=== PATIENT | male | born 1970 | race Caucasian/White ===

== ENCOUNTER 2019-07-07 07:33 | Outpatient (RCR) | payer BC ==
[~2019-07-07] VITALS: Ht 165 cm; Wt 109.0 kg
[~2019-07-07 07:33] MED LIST: ALPR0.5T PO; ATOR20TA49 PO; CITA40TA19 PO; ENAL10TA PO; HYDR50TA3 PO; LEVO100T PO
== END 2019-07-07 14:52 | disposition home or self-care (01) ==
LOC: EDSEX 07:33 → PREOP 07:33
PROVIDERS: ATTEND Podiatrist Foot & Ankle Surgery
DX: Z01.812 Encounter for preprocedural laboratory examination (principal); Z11.59 Encounter for screening for other viral diseases; M72.2 Plantar fascial fibromatosis
CPT/HCPCS: 87635

== ENCOUNTER 2019-07-11 11:50 | Day surgery (SDC) | payer BC ==
[~2019-07-11] VITALS: Ht 165 cm; Wt 109.0 kg
[2019-07-11] VITALS (9 sets, daily range): BP systolic 139–165; BP diastolic 80–100
[2019-07-11] MEDS ORDERED: BUPIVACAINE 0.5% 30 ML (SENSORCAINE) VIAL ONE (11:56)
[2019-07-11] MEDS ORDERED: LIDOCAINE 1% INJ 20 ML 20 ML VIAL ONE (11:57)
[2019-07-11] MEDS ORDERED: DEXAMETHASONE 10 MG/ML (DECADRON) 1 ML VIAL ONE (12:01)
[2019-07-11] MEDS ORDERED: LACTATED RINGERS 1,000 ML IV PRN (12:04)
[2019-07-11] MEDS ORDERED: proPOfol 200 MG/20 ML (DIPRIVAN) VIAL IV ONE (12:10)
[2019-07-11] MEDS ORDERED: fentaNYL INJECTION 100 MCG/2 ML AMP ONE (12:10)
[2019-07-11] MEDS ORDERED: ONDANSETRON 4 MG/2 ML (SDV) Z0FRAN ONE (12:10)
[2019-07-11] MEDS ORDERED: LIDOCAINE PF 2% 5 ML (XYLOCAINE) VIAL ONE (12:10)
[2019-07-11] MEDS ORDERED: MIDAZOLAM 2 MG/2 ML (VERSED) VIAL ONE (12:10)
[2019-07-11] MEDS ORDERED: ceFAZolin INJECTION 1,000 MG ONE (12:11)
[2019-07-11] MEDS ORDERED: WATER (STERILE) FOR INJECTION 10 ML ONE (12:11)
[2019-07-11] MEDS ORDERED: CATHETER FLUSH 10 ML SYR IV PRN (12:15)
[2019-07-11] MEDS ORDERED: ceFAZolin INJECTION 1,000 MG in WATER (STERILE) FOR INJECTION 10 ML IV ONE (12:15)
[2019-07-11] MEDS ORDERED: SEVOFLURANE (ULTANE) 15 ML INHAL SOLN ONE (12:58)
--- NOTE | 2019-07-11 13:16 | Progress Note-Pre Operative ---
Pre-Operative Progress Note H&P Reviewed The H&P was reviewed, patient examined and no changes noted. Date Seen by Provider: Jul 11, 2019 Time Seen by Provider: 12:20 Date H&P Reviewed: Jul 11, 2019 Time H&P Reviewed: 12:20 Pre-Operative Diagnosis: Plantar fasciitis, left ANABELLA KIRBY DPElyssa Jul 11, 2019 13:16
--- NOTE | 2019-07-11 13:17 | Progress Note-Post Operative ---
Post-Operative Progess Note Surgeon (s)/Clerk Secretary (s) Surgeon ANABELLA KIRBY DPM Clerk Secretary: none Pre-Operative Diagnosis Plantar fasciitis, left Post-Operative Diagnosis same Procedure & Operative Findings Date of Procedure 07/11/19 Procedure Performed/Findings Endoscopic Plantar Fascial release, left foot Anesthesia Type General Estimated Blood Loss Estimated blood loss (mL): Minimal Specimens/Packing Specimens Removed None ANABELLA KIRBY DPM Jul 11, 2019 13:17
[2019-07-11] MEDS ORDERED: HYDR-83 PO (13:21)
[2019-07-11] MEDS ORDERED: ONDANSETRON 4 MG/2 ML (SDV) Z0FRAN IVP PRN (13:30)
[2019-07-11] MEDS ORDERED: HYDROmorphone 2 MG/ML VIAL (DILAUDID) IV ONE (13:30)
[2019-07-11] MEDS ORDERED: PROMETHAZINE INJ 25 MG/ML (PHENERGAN) AMP IVP ONE (13:30)
[2019-07-11] MEDS ORDERED: morphine INJ 10 MG/ML 1ML (SYR OR VIAL) IVP ONE (13:30)
--- NOTE | 2019-07-11 14:45 | Anesthesia-General Post-Op ---
General Patient Condition Mental Status/LOC: Same as Preop Cardiovascular: Satisfactory Nausea/Vomiting: Absent Respiratory: Satisfactory Pain: Controlled Complications: Absent Post Op Complications Complications None Follow Up Care/Instructions Patient Instructions None needed. Anesthesia/Patient Condition Patient Condition Patient is doing well, no complaints, stable vital signs, no apparent adverse anesthesia problems. No complications reported per nursing. ASHLEIGH OLEARY CRNA Jul 11, 2019 14:45
--- OUTSIDE RECORDS SUMMARY | 2019-07-11 15:15 | XMS REPORT ---
Author Author [facility] Medic al Staff, JOSEPHINE Organization [facility] Address [address], [place] [address] Phone [phone] Care Team Providers Care Catering Sous Chef Name Role Phone MARY SOUZA PP [phone] Summary purpose TRANSITION OF CARE AUTO GENERATION Chief Complaint and Reason for Visit No authorized Reason for Visit (Admitting Diagnosis) is available for this visit . Problem list No authorized problems tracked for continuity of care are available for this vis it. Encounters No authorized problems tracked for encounter diagnoses are available for this vi sit. Medications No medications recorded for this patient visit Allergies, adverse reactions, alerts Allergen Category Ingredient Status Reaction Severity Onset No known drug allergies No known drug allergies No known drug al lergies Confirmed or Verified Immunizations No immunizations recorded for this patient visit Relevant diagnostic tests and/or laboratory data No authorized results are available for this patient visit History of procedures No procedures recorded for this patient visit. Functional status Functional Status Finding Observation Time Diet regular :55 Abdomen Appearance obese :55 Abdomen soft :55 Bowel Sounds present :55 Antonio no :55 Urination normal :55 Quality sym/unlabored :55 Cough absent :55 Secretions no :55 Breath Sounds RUL clear :55 Breath Sounds RML clear :55 Breath Sounds RLL clear :55 Breath Sounds MARTÍN clear :55 Breath Sounds LLL clear :55 Airway natural :55 Chest Tube no :55 Oxygen no 67-70-880618:42 Nursing Note Ankle brace/ splint placed o n right ankle. B. Kimberly in to show xrays to patient and her . :35 Vital signs Type Value Date Respiration Rate 18breaths per minute : 42 Pulse 70beats per minute :42 Oxygen Saturation 99% :42 BP Systolic 123mmHg :42 BP Diastolic 70mmHg :42 Temperature 98.4F :42 Social history No Social History or smoking status observations were recorded for this visit. ( Unknown if ever smoked.) Treatment Plan No treatment plan text is available for this visit. Hospital discharge instructions Dismissal Condition fair Disposition on DC home DC Inst/Educ Give yes Med/Side Effects Rev yes
--- OUTSIDE RECORDS SUMMARY | 2019-07-11 15:15 | XMS REPORT ---
Author Author [facility] Medic al Staff, JOSEPHINE Organization [facility] Address [address], [place] [address] Phone [phone] Care Team Providers Care Momd Teacher Name Role Phone MARY SOUZA PP [phone] Summary purpose TRANSITION OF CARE AUTO GENERATION [...] recorded for this patient visit. Functional status No functional or cognitive status observations are available for this visit. Vital signs No authorized vital signs are available for this visit. Social history No Social History or smoking status observations were recorded for this visit. ( Unknown if ever smoked.) Treatment Plan No treatment plan text is available for this visit. Hospital discharge instructions No discharge instruction text is available for this visit.
--- OUTSIDE RECORDS SUMMARY | 2019-07-11 15:15 | XMS REPORT ---
Author Author [facility] Medic al StaffJOSEPHINE Organization [facility] Address [address], [place] [address] Phone [phone] Care Team Providers Care Bow Maker Machine Tender Name Role Phone MARY SOUZA PP [phone] Summary purpose TRANSITION OF CARE AUTO GENERATION [...] visit Relevant diagnostic tests and/or laboratory data RESULTS Radiology Results 31-50-073545:23:00 Pelvic Sono Complete PACs Image DATE OF EXAM: Jul 17 2014 [id number] SONO COMPL ETE : RADIOLOGY REPORT DATE OF SERVICE: 07/17/14 HISTORY: Patient has pelvic pain, histor y of ovarian cysts. PELVIC [id number] HOURS The uterus has been removed. The right o vary shows cyst measuring 2.2 x 2.1 x 2.3 cm. The left ovary is normal. IMPRESSION: Cyst in the right ovary. The size is similar to a study 07/26/2009, although cyst is slightly sma ller. No free fluid is seen. Uterus has been removed. DO HONG Murray/raquel 07/17/2014 09:41:00 07/06 09:59:17 cc:Elan Campos This document has been electronically Signed by: On: DATE OF EXAM: Jul 17 2014 [id number] SONO COMPL ETE : RADIOLOGY REPORT DATE OF SERVICE: 07/17/14 HISTORY: Patient has pelvic pain, histor y of ovarian cysts. PELVIC [id number] HOURS The uterus has been removed. The right o vary shows cyst measuring 2.2 x 2.1 x 2.3 cm. The left ovary is normal. IMPRESSION: Cyst in the right ovary. The size is similar to a study 07/26/2009, although cyst is slightly sma ller. No free fluid is seen. Uterus has been removed. All Rodriguez DO MW/nh 07/17/2014 09:41:00 / 07/06 09:59:17 cc:Elan Campos This document has been electronically Signed by: ALL RODRIGUEZ DO On: Jul 17 2014 10:23A Result Amended on 2014-07-17 at 10:23:42 . Previous status was [place]. History of procedures No procedures recorded for [...]
--- OUTSIDE RECORDS SUMMARY | 2019-07-11 15:16 | XMS REPORT ---
Author Author [facility] Medic al Staff, JOSEPHINE Organization [email or web address] Address [address], [place] [address] Phone [phone] Care Team Providers Care Food Stylist Name Role Phone MARY SOUZA PP [phone] Summary purpose TRANSITION OF CARE AUTO GENERATION [...]
--- OUTSIDE RECORDS SUMMARY | 2019-07-11 15:16 | XMS REPORT ---
Author Author [facility] Medic al Staff, JOSEPHINE Organization [facility] Address [address], [place] [address] Phone [phone] Care Team Providers Care Reefer Engineer Name Role Phone MARY SOUZA PP [phone] Summary purpose TRANSITION OF CARE AUTO GENERATION Chief Complaint and Reason for Visit Admit Diagnosis 1 PHYSICAL THERAPY NEC Problem list No authorized problems tracked for [...]
--- OUTSIDE RECORDS SUMMARY | 2019-07-11 15:16 | XMS REPORT ---
Author Author [facility] Medic al Staff, JOSEPHINE Organization [facility] Address [address], [place] [address] Phone [phone] Summary purpose TRANSITION OF CARE AUTO GENERATION [...] Relevant diagnostic tests and/or laboratory data RESULTS Chemistry [id number]:44:00 Result Normal Range Units Sodium 139 134-145 mEq/l Potassium 4.6 3.5-5.1 mEq/l Chloride 103 98-107 mEq/l CO2 H 29.6 22-28 mEq/l Glucose H 117 70-105 mg/dl BUN 13 7-18 mg/dl Creatinine 0.66 0.6-1.0 mg/dl Triglycerides 159 35-160 mg/dl Cholesterol 187 120-200 mg/dl HDL Cholesterol 39 39-96 mg/d l VLDL Cholesterol 32 5-40 mg/ dl LDL Cholesterol H 109 30-100 mg/d l Calcium 8.7 8.4-10.2 mg/dl TP - Total Protein 6.7 6.0-8.3 g /dl Albumin L 3.4 3.5-5 g/dl Bilirubin - Total 0.3 0.1-1.0 mg /dl AST 24 10-42 IU/L ALT 36 12-65 IU/L ALP H 82 25-72 IU/L Osmolality L 278.7 280-300 mOsm/L Albumin/Globulin Ratio 1.0 0-8 Anion GAP L 6.4 8-16 BUN/Creatinine Ratio 19.7 10-20 Estimated GFR 98 >= 60 mL/min /1.7 Hematology :44:00 Result Normal Range Units WBC 6.5 4.8-10.8 103/uL RBC 4.2 4.2-5.4 106/uL HGB L 11.4 12.0-16.0 g/dl HCT L 34.5 36.9-47.0 % MCV 81.4 81-99 FL MCH L 26.9 27-31 pg MCHC 33.0 33-37 g/dl RDW 14.0 11.5-15.5 % PLT 258 130-400 103/uL MPV H 10.7 7.3-10.4 FL Neutro % 61.9 40-70 % Lymph % 28.9 20-40 % [place] % 6.2 0-10.0 % Eos % 2.2 0-7.0 % Baso % 0.6 0-2 % Neutro # 4.0 1.5-7.5 103/uL Lymph # 1.9 0.9-4.0 103/uL [place] # 0.4 0-0.8 103/uL Eos # 0.1 0-0.6 103/uL Baso # 0.0 0-0.1 103/uL Thyroid Testing :44:00 Result Normal Range Units TSH 2.63 0.36-3.74 uIU/mL Free T4 0.79 0.78-1.34 ng/dl Radiology Results :44:00 Result Normal Range Units MPV H 10.7 7.3-10.4 FL History of procedures No procedures recorded for [...]
--- OUTSIDE RECORDS SUMMARY | 2019-07-11 15:16 | XMS REPORT ---
Author Author [facility] Medic al Staff, JOSEPHINE Organization [facility] Address [address] [place], [place] [address] Phone [phone] Care Team Providers Care Review Assistant Name Role Phone MARY SOUZA PP [phone] Summary purpose TRANSITION OF CARE AUTO GENERATION [...] Relevant diagnostic tests and/or laboratory data RESULTS Routine Cultures [id number]:14:00 Urine Culture Plate Date and Time 07/09/2014 12:15 SourceURINE CULTURE REPORT >100,000 colonies/ml Mixed juanpablo Culture Pending Release Date/Time: 0 07/10/2014 08:20 CULTURE REPORT >100,000 colonies/ml Mixed vaginal and stool juanpablo. Release Date/Time: 0 07/11/2014 08:01 History of procedures No procedures recorded for [...]
--- OUTSIDE RECORDS SUMMARY | 2019-07-11 15:16 | XMS REPORT ---
Author Author [facility] Medic al Staff, JOSEPHINE Organization [facility] Address [address], [place] [address] Phone [phone] Summary purpose TRANSITION OF CARE AUTO GENERATION Chief Complaint and Reason for Visit Admit Diagnosis 1 OT SCREEN MAMMOGRAM Problem list No authorized problems tracked for [...] tests and/or laboratory data RESULTS Radiology Results [id number]:47:00 Bilateral Screen Digital Mammo PACs Image DATE OF EXAM: Sep 23 2014 [facility] 0845-BILAT SCREEN DIG MA MMO : RADIOLOGY REPORT DATE OF SERVICE: 09/23/14 HISTORY: Screening for possible malignan t neoplasm BILATERAL SCREENING DIGITAL MAMMOGRAPHY WITH iCAD SecondLook 7.2-H+ 1410 HOURS There is heterogeneously dense breasts. No mass, grouped calculi or architectural distortion are seen. IMPRESSION: Negative BI-RADS I study unc hanged from 09/26/2013. All Rodriguez DO /raquel 09/23/2014 14:48:00 / 09/05 14:54:01 cc:Dr. Srini Campos This document has been electronically Signed by: On: DATE OF EXAM: Sep 23 2014 [facility] 0845-BILAT SCREEN DIG MA MMO : RADIOLOGY REPORT DATE OF SERVICE: 09/23/14 HISTORY: Screening for possible malignan t neoplasm BILATERAL SCREENING DIGITAL MAMMOGRAPHY WITH iCAD SecondLook 7.2-H+ 1410 HOURS There is heterogeneously dense breasts. No mass, grouped calculi or architectural distortion are seen. IMPRESSION: Negative BI-RADS I study unc hanged from 09/26/2013. All Rodriguez DO MW/nh 09/23/2014 14:48:00 / 09/05 14:54:01 cc:Dr. Srini Campos This document has been electronically Signed by: ALL RODRGIUEZ DO On: Sep 23 20145:47P Result Amended on 2014-09-23 at 17:47:17 . Previous status was [place]. History of procedures Procedure Code Code Type Description Date Performed Performing Physician 13796 CPT-4 MAMMOGRAM, SCREENING 09-23-2014 SRINI BURNHAM 92514 CPT-4 COMP SCREEN MAMMOGRAM ADD-ON 09-23-2014 SRINI BURNHAM Functional status No functional or cognitive status [...]
--- OUTSIDE RECORDS SUMMARY | 2019-07-11 15:16 | XMS REPORT ---
Author Author [facility] Medic al Staff, JOSEPHINE Organization [facility] Address [address], [place] [address] Phone [phone] Care Team Providers Care Stonecutter Apprentice Hand Name Role Phone MARY SOUZA PP [phone] Summary purpose TRANSITION OF CARE AUTO GENERATION [...] tests and/or laboratory data RESULTS Radiology Results [id number]:05:00 MRI LOW EXT JT W/O CON PACs Image DATE OF EXAM: 2014 MRI 0093-MRI LOWER EXT JOINT W/O CONTRAST- RIGHT: RADIOLOGY REPORT DATE OF SERVICE:08/06/2014 HISTORY:Right ankle pain, swelling, popping and catching, injury on 05/12/2014. MRI OF THE RIGHT ANKLE 0910 HOURS Imaging of the ankle was performed in th e sagittal, coronal, and axial planes. No contrast was administered. There is mild thickening and increased s ignal in the distal 3 cm of the Achilles tendon and minimal edema in the adjacent posterior calcaneus at the Achilles tendon insertion. The plant ar aponeurosis is normal. The peroneal tendons, medial tendons and anterior tendons are normal. The talar dome is smooth. There is no evan int effusion or definite loose body. The deltoid and talofibular ligame nts are normal. There is a small septated ganglion cyst posteriorly at th e ankle measuring 11 x 15 mm. The talocalcaneal joint is normal. No de finite tarsal coalition is visualized. There is mild edema in the s oft tissues of the distal leg and lateral ankle. IMPRESSION: 1. Small ganglion cyst posteriorly at th e tibiotalar joint. 2. Probable mild chronic Achilles tendinosis. 3. No other significant ligamentous or t endon abnormality about the ankle. 4. Nonspecific subcutaneous edema. MD BASSAM Woody/cecile08/06/2014 11:48:03/2014 12:46:26 cc:Abraham Velazquez This document has been electronically Signed by: On: DATE OF EXAM: 2014 MRI 0093-MRI LOWER EXT JOINT W/O CONTRAST- RIGHT: RADIOLOGY REPORT DATE OF SERVICE:08/06/2014 HISTORY:Right ankle pain, swelling, popping and catching, injury on 05/12/2014. MRI OF THE RIGHT ANKLE 0910 HOURS Imaging of the ankle was performed in th e sagittal, coronal, and axial planes. No contrast was administered. There is mild thickening and increased s ignal in the distal 3 cm of the Achilles tendon and minimal edema in the adjacent posterior calcaneus at the Achilles tendon insertion. The plant ar aponeurosis is normal. The peroneal tendons, medial tendons and anterior tendons are normal. The talar dome is smooth. There is no evan int effusion or definite loose body. The deltoid and talofibular ligame nts are normal. There is a small septated ganglion cyst posteriorly at th e ankle measuring 11 x 15 mm. The talocalcaneal joint is normal. No de finite tarsal coalition is visualized. There is mild edema in the s oft tissues of the distal leg and lateral ankle. IMPRESSION: 1. Small ganglion cyst posteriorly at th e tibiotalar joint. 2. Probable mild chronic Achilles tendinosis. 3. No other significant ligamentous or t endon abnormality about the ankle. 4. Nonspecific subcutaneous edema. MD BASSAM Woody/cecile08/06/2014 11:48:03/2014 12:46:26 cc:Abraham Velazquez This document has been electronically Signed by: MARY LARA On: :05P Result Amended on 2014-08-06 at 14:05:27 . Previous status was [place]. History of procedures No procedures recorded for [...]
--- OUTSIDE RECORDS SUMMARY | 2019-07-11 15:16 | XMS REPORT ---
Author Author [facility] Medic al StaffJOSEPHINE Organization [facility] Address [address], [place] [address] Phone [phone] Care Team Providers Care Farmworker Livestock Name Role Phone MARY SOUZA PP [phone] Summary purpose TRANSITION OF CARE AUTO GENERATION [...] tests and/or laboratory data RESULTS Radiology Results [id number]:23:00 Pelvic Sono Complete PACs Image DATE OF EXAM: Jul 17 2014 [id number] SONO COMPL ETE : RADIOLOGY REPORT DATE OF SERVICE: 07/17/14 HISTORY: Patient has pelvic pain, histor y of ovarian cysts. PELVIC [id number] HOURS The uterus has been removed. The [...] On: DATE OF EXAM: Jul 17 2014 [id number] SONO COMPL ETE : RADIOLOGY REPORT DATE OF SERVICE: 07/17/14 HISTORY: Patient has pelvic pain, histor y of ovarian cysts. PELVIC [id number] HOURS The uterus has been removed. The [...] 2014-07-17 at 10:23:42 . Previous status was [place]. History of procedures No procedures recorded for [...]
--- OUTSIDE RECORDS SUMMARY | 2019-07-11 15:16 | XMS REPORT ---
Author Author [employer] [facility] Medic al Staff, JOSEPHINE Organization [facility] Address [address] [place], [place] [address] Phone [phone] Care Team Providers Care Automotive Refinisher Name Role Phone GABRIEL SOUZA PP [phone] Summary purpose TRANSITION OF CARE AUTO GENERATION Chief Complaint and Reason for Visit Admit Diagnosis 1 PAIN IN LIMB Problem list No authorized problems tracked for [...] tests and/or laboratory data RESULTS Radiology Results [id number]:02:00 FOOT XRAY - 3 VIEW PACs Image DATE OF EXAM: Jun 28 2014 RAD 0649-FOOT XRAY-3 VIEW - RIGHT: RADIOLOGY REPORT DATE OF SERVICE: 06/28/2014 HISTORY: The patient has right foot pain with no known injury. RIGHT FOOT, 3 VIEWS 1631 HOURS There is ossification and attachment of Achilles tendon to the calcaneus.This is degenerative.R emaining bony structures and joints are intact and normal. IMPRESSION: Ossification and attachment of Achilles tendon to calcaneus. Otherwise, negative study. All Rodriguez DO MW/cc 06/29/2014 16:15:00 / 0506/2014 19:18:59 cc:Gabriel Barry PA-C This document has been electronically Signed by: On: DATE OF EXAM: Jun 28 2014 RAD 0649-FOOT XRAY-3 VIEW - RIGHT: RADIOLOGY REPORT DATE OF SERVICE: 06/28/2014 HISTORY: The patient has right foot pain with no known injury. RIGHT FOOT, 3 VIEWS 1631 HOURS There is ossification and attachment of Achilles tendon to the calcaneus.This is degenerative.R emaining bony structures and joints are intact and normal. IMPRESSION: Ossification and attachment of Achilles tendon to calcaneus. Otherwise, negative study. All Rodriguez DO MW/cc 06/29/2014 16:15:00 / 06/06 19:18:59 cc:Gabriel Barry PA-C This document has been electronically Signed by: ALL RODRIGUEZ DO On: Jun 30 2014 12:02P Result Amended on 2014-06-30 at 12:02:26 . Previous status was [place]. History of procedures Procedure Code Code Type Description Date Performed Performing Physician 27622 CPT-4 X-RAY EXAM OF FOOT 06-28-2014 EDUARDOLORENA HARRIS L1902 CPT-4 AFO ANKLE GAUNTLET 06-28-2014 EDUARDOLORENA HARRIS 43837 CPT-4 EMERGENCY DEPT VISIT 06-28-2014 JAIRONHOLLI KRISHNAMURTHY PHUONG 33502 CPT-4 EMERGENCY DEPT VISIT 06-28-2014 JAIRONHOLLI HARRIS Functional status Functional Status Finding Observation Time Diet regular 60-77-485813:55 Abdomen Appearance obese 88-53-777040:55 Abdomen soft 30-10-863240:55 Bowel Sounds present 72-40-187083:55 Antonio no 00-68-645652:55 Urination normal 17-69-875112:55 Quality sym/unlabored 72-08-920749:55 Cough absent 73-85-859143:55 Secretions no 73-91-958039:55 Breath Sounds RUL clear 48-25-634076:55 Breath Sounds RML clear 78-08-379623:55 Breath Sounds RLL clear 35-66-594067:55 Breath Sounds MARTÍN clear 90-95-622208:55 Breath Sounds LLL clear 96-75-689527:55 Airway natural 78-63-618466:55 Chest Tube no 38-74-808199:55 Oxygen no 11-50-234300:42 Nursing Note Ankle brace/ splint placed o n right ankle. Srini Harris in to show xrays to patient and her . :35 Vital signs Type Value Date Respiration Rate 18breaths per minute : 42 Pulse 70beats per minute :42 Oxygen Saturation 99% 14-76-876990:42 BP Systolic 123mmHg 62-76-168163:42 BP Diastolic 70mmHg 78-04-068578:42 Temperature 98.4F 85-60-272125:42 Social history No Social History or smoking status observations were recorded for this visit. ( Unknown if ever smoked.) Treatment Plan No treatment plan text is available for this visit. Hospital discharge instructions Dismissal Condition fair Disposition on DC home DC Inst/Educ Give yes Med/Side Effects Rev yes
--- OUTSIDE RECORDS SUMMARY | 2019-07-11 15:16 | XMS REPORT ---
Author Author [facility] Medic al Staff, JOSEPHINE Organization [facility] Address [address] [place], [place] [address] Phone [phone] Care Team Providers Care Elevator Installer Apprentice Name Role Phone MARY SOUZA PP [phone] Summary purpose TRANSITION OF CARE AUTO GENERATION [...] for this patient visit History of procedures Procedure Code Code Type Description Date Performed Performing Physician 27490 CPT-4 PT EVALUATION 07-23-2014 NAVID BOWENS 41409 CPT-4 ELECTRIC CURRENT THERAPY 07-23-2014 Theresa BOWENS 51145 CPT-4 ELECTRIC CURRENT THERAPY 07-27-2014 B DERRICK BOWENS 21523 CPT-4 ELECTRIC CURRENT THERAPY 07-30-2014 Theresa BOWENS Functional status No functional or cognitive status [...]
--- OUTSIDE RECORDS SUMMARY | 2019-07-11 15:16 | XMS REPORT ---
Author Author [email or web address] Medic al Staff, JOSEPHINE Organization [facility] Address [address] [place], [place] [address] Phone [phone] Summary purpose TRANSITION OF CARE AUTO GENERATION [...] tests and/or laboratory data RESULTS Radiology Results 93-70-705527:47:00 Bilateral Screen Digital Mammo PACs Image DATE OF EXAM: Sep 23 2014 [facility] 0845-BILAT SCREEN DIG MA MMO : RADIOLOGY REPORT DATE OF SERVICE: 09/23/14 HISTORY: Screening for possible malignan t neoplasm BILATERAL SCREENING DIGITAL MAMMOGRAPHY WITH iCAD SecondLook 7.2-H+ 1410 HOURS There is heterogeneously dense breasts. No mass, grouped calculi or architectural distortion are seen. IMPRESSION: Negative BI-RADS I study unc hanged from 09/26/2013. DO HONG Murray/raquel 09/23/2014 14:48:00 / 09/05 14:54:01 cc:Dr. Ayla Campos This document has been electronically Signed by: On: DATE OF EXAM: Sep 23 2014 [facility] 0845-BILAT SCREEN DIG MA MMO : RADIOLOGY REPORT DATE OF SERVICE: 09/23/14 HISTORY: Screening for possible malignan t neoplasm BILATERAL SCREENING DIGITAL MAMMOGRAPHY WITH iCAD SecondLook 7.2-H+ 1410 HOURS There is heterogeneously dense breasts. No mass, grouped calculi or architectural distortion are seen. IMPRESSION: Negative BI-RADS I study unc hanged from 09/26/2013. All Rodriguez DO MW/nh 09/23/2014 14:48:00 09/05 14:54:01 cc:Dr. Ayla Campos This document has been electronically Signed by: ALL RODRIGUEZ DO On: Sep 23 20145:47P Result Amended on 2014-09-23 at 17:47:17 . Previous status was [place]. History of procedures No procedures recorded for [...]
--- OUTSIDE RECORDS SUMMARY | 2019-07-11 15:16 | XMS REPORT | Continuity of Care Document ---
Demographics Preferred Language Unknown Marital Status Unknown Adventism Affiliation Unknown Race Unknown Ethnic Group Unknown Author Organization Unknown Address Unknown Phone Unavailable Allergies Active Description Code Type Severity Reaction Onset Reported/Identified Relationship to Patient Clinical Status Yes No Known Allergies [id number] N/A N/A Yes No known drug allergies [id number] ND N/A N/A Yes No Known Drug Allergy Drug Allergy Unknown N/A 08/05/2014 Yes No Known Drug Category Allergy Drug Allergy Unknown N/A 08/05/2014 Yes No Known Environment Allergy Environmental Allergy Unknown N/A 08/05/2014 Yes No Known Food Allergy Food Allergy Unknown N/A 08/05/2014 Yes No Known Allergies No Known Allergies Drug Allergy Unknown N/A 10/30/2016 Yes No Known Allergies No Known Allergies Drug Allergy Unknown N/A 10/30/2016 Yes No Known Drug Allergy Drug Allergy Unknown N/A 01/31/2017 Yes No Known Drug Category Allergy Drug Allergy Unknown N/A 01/31/2017 Yes No Known Environment Allergy Environmental Allergy Unknown N/A 01/31/2017 Yes No Known Food Allergy Food Allergy Unknown N/A 01/31/2017 Yes No Known Drug Allergies No Kno wn Drug Allergies Drug Allergy Unknown . 03/05/2017 Yes No Known Drug Allergies [id number] Drug Allergy Unknown N/A 07/03/2019 Medications Medication Packaging Start Date St op Date Route Dosage Sig CeleXA 40 mg tablet Tablet 08/05/2014 40 mg take 1 (one) Tablet by Oral route daily levothyroxine 50 mcg tablet 08/05/2014 10/31/2016 50 mcg 1 (one) by Oral route daily for 90 days ALPRAZolam 0.5 mg tablet Tab let 08/05/2014 10/31/2016 0.5 mg take 1 (one) Tablet by Oral route daily for 30 days enalapril maleate 10 mg tablet Tablet 08/05/2014 11/03/2014 10 mg take 1 (one) Tablet by Oral route daily for 90 days Myrbetriq 25 mg tablet,extended release Tablet 10/31/2016 25 mg take 1 (one) by Oral route daily hydroCHLOROthiazide 50 mg tablet Blister 10/31/2016 50 mg take 1 (one) Tablet by Oral route daily Synthroid 125 mcg tablet Tab let 10/31/2016 125 mcg 1 (one) by Oral route daily Lipitor 10 mg tablet Tablet 10/31/2016 10 mg take 1 (one) Tablet by Oral route daily Taytulla 1 mg-20 mcg (24)/75 mg (4) capsul e Blister 10/31/2016 1 mg-20 m cg (24)/75 mg (4) 1 (one) by Oral route daily Xanax 1 mg tablet Tablet 10/31/2016 1 mg take 1 (one) Tablet by Oral route daily Bactrim 400 mg-80 mg tablet Tablet 01/31/2017 02/08/2017 400-80 mg take 1 (one) Tablet by Oral route daily CeleXA 40 mg tablet Tablet 02/08/2017 40 mg hydroCHLOROthiazide 50 mg tablet Blister 02/08/2017 50 mg enalapril maleate 10 mg tablet Tablet 02/08/2017 10 mg Synthroid 100 mcg tablet Tab let 02/08/2017 100 mcg Lipitor 20 mg tablet Tablet 02/08/2017 20 mg Xanax 0.5 mg tablet Tablet 02/08/2017 0.5 mg Problems Date Dx Coded Attending Type Code Diagnosis Diagnosed By 06/28/2014 PIPPA PELAYO 726.71 ACHILLES TENDINITIS 06/28/2014 PIPPA PELAYO 729.5 PAIN IN LIMB 08/20/2014 NAVID BOWENS 727.06 TENOSYNOVITIS FOOT/ANKLE 08/20/2014 NAVID BOWENS V57.1 PHYSICAL THERAPY NEC 10/31/2016 Daniel Stark MD N94.19 OTHER SPECIFIED DYSPAREUNIA 10/31/2016 Daniel Stark MD R10.2 PELVIC AND PERINEAL PAIN 10/31/2016 Daniel Stark MD N94.19 OTHER SPECIFIED DYSPAREUNIA 10/31/2016 Daniel Stark MD R10.2 PELVIC AND PERINEAL PAIN 02/12/2017 Truong Wilcox E66.01 Morbid (severe) obesity due to excess calories Truong Wilcox 02/12/2017 Truong Wilcox I10 Essential (primary) hypertension Truong Wilcox 02/12/2017 Truong Wilcox 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 Truong Wilcox 02/12/2017 Truong Wilcox R10.32 Left lower quadrant pain Truong Wilcox 02/12/2017 Truong Wilcox Z68.41 Body mass index (BMI) 40.0-44.9, adult Truong Wilcox 02/12/2017 Truong Wilcox Z79.89 9 Other intermediate designer (current) drug therapy Truong Wilcox 04/09/2017 Truong Wilcox Z09 Encounter for follow-up examination after completed treatment for conditions other than malignant neoplasm Truong Wilcox 05/23/2017 Truong Wilcox E66.01 Morbid (severe) obesity due to excess calories Truong Wilcox 05/23/2017 Truong Wilcox K66.0 Peritoneal adhesions (postprocedural) (postinfection) Truong Wilcox 05/23/2017 Truong Wilcox R10.2 Pelvic and perineal pain Truong Wilcox 05/23/2017 Truong Wilcox Z68.42 Body mass index (BMI) 45.0-49.9, adult Truong Wilcox 07/07/2019 MIRTA DPM, ANABELLA Q Ot M72. 2 PLANTAR FASCIAL FIBROMATOSIS 07/07/2019 MIRTA DPM, ANABELLA Q Ot Z01.812 ENCOUNTER FOR PREPROCEDURAL LABORATORY E 07/07/2019 MIRTA DPM, ANABELLA Q Ot Z11. 59 ENCOUNTER FOR SCREENING FOR OTHER VIRAL Procedures Code Description [place] [address] X-RA Y EXAM OF FOOT 06/28/2014 81383 [facility] GENC[facility] DEPT VISIT 06/28/2014 45296 [facility] GENC[facility] DEPT VISIT 06/28/2014 L1902 AFO ANKLE GAUNTLET 06/28/2014 23310 Offi ce or other outpatient visit for the evaluation and management of a new patient, which requires Brenden Truong Theresa 02/09/2017 19164 Offi ce or other outpatient visit for the evaluation and management of a new patient, which requires Brenden Truong Cardenas 02/23/2017 03048 Post operative follow-up visit, normally included in the surgical package, to indicate that an evalua Brenden Truong Cardenas 04/09/2017 24408 LAPA ROSCOPY, SURGICAL; WITH LYSIS OF ADHESIONS (SALPINGOLYSIS, OVARIOLYSIS) (SEPARATE PROCEDURE) Truong Wilcox 05/22/2017 S2900 Surg ical techniques requiring use of robotic surgical system (list separately in addition to code fo Truong Wilcox Theresa 05/22/2017 81628 LAPA ROSCOPY, SURGICAL; WITH LYSIS OF ADHESIONS (SALPINGOLYSIS, OVARIOLYSIS) (SEPARATE PROCEDURE) BrendenTruong Theresa 05/30/2018 S2900 Surg ical techniques requiring use of robotic surgical system (list separately in addition to code fo Truong Wilcox Theresa 05/30/2018 Results Test Result Range PROGESTERONE - 05/26/13 00:00 PROGE < 0.5 ng/mL TESTOSTERONE FREE AND TOTAL - 05/26/13 0 0:00 TESTOS 40 ng/dL 2-45 TESTOSFR 2.3 pg/mL 0.1-6.4 TSH - 09/12/13 00:00 TSH 1.18 UIUML 0.36-3.74 FREE T4 - 09/12/13 00:00 FT4 0.89 NG/DL 0.76-1.46 CBC WITH DIFF - 12/07/14 00:00 BASO% 0.6 % 0-2 EOS% 2.2 % 0-7.0 HCT 34.5 % 36.9-47.0 HGB 11.4 G/DL 12.0-16.0 LYMPH% 28.9 % 20-40 MCH 26.9 PG 27-31 MCHC 33.0 G/DL 33-37 MCV 81.4 FL 81-99 MONO% 6.2 % 0-10.0 MPV 10.7 FL 7.3-10.4 NEUTRO% 61.9 % 40-70 PLT 258 10^3u 130-400 RBC 4.2 10^6u 4.2-5.4 RDW 14.0 % 11.5-15.5 WBC 6.5 10^3u 4.8-10.8 NEUTRO# 4.0 10^3u 1.5-7.5 LYMPH# 1.9 10^3u 0.9-4.0 MONO# 0.4 10^3u 0-0.8 EOS# 0.1 10^3u 0-0.6 BASO# 0.0 10^3u 0-0.1 IMM GRANULOCYTE % 0.2 % IMM GRANULOCYTE # 0.0 10^3u 0-5 FREE T4 - 12/07/14 00:00 FT4 0.79 NG/DL 0.78-1.34 TSH - 12/07/14 00:00 TSH 2.63 UIUML 0.36-3.74 LIPID - 12/07/14 00:00 CHOHDL 4.8 1-3.5 CHOL 187 MG/DL 120-200 HDL 39 MG/DL 39-96 LDL 109 MG/DL 30-100 TRIG 159 MG/DL 35-160 VLDL 32 MG/DL 5-40 CMP - 12/07/14 00:00 ALB 3.4 G/DL 3.5-5 ALP 82 IU/L 25-72 ALT 36 IU/L 12-65 AST 24 IU/L 10-42 BCR 19.7 10-20 BUN 13 MG/DL 7-18 CA 8.7 MG/DL 8.4-10.2 CL 103 MEQ/L 98-107 CO2 29.6 MEQ/L 22-28 CREA 0.66 MG/DL 0.6-1.0 EGFR 98 eGFR >= 60 GLU 117 MG/DL 70-105 K 4.6 MEQ/L 3.5-5.1 NA 139 MEQ/L 134-145 OSMSC 278.7 MOSML 280-300 TBIL 0.3 MG/DL 0.1-1.0 TP 6.7 G/DL 6.0-8.3 Albumin/Globulin Ratio 1.0 0-8 Anion Gap 6.4 8-16 URINALYSIS - 10/31/16 09:51 COLOR STRAW NRG RBC NEGATIVE NEGATIVE NITRITES NEGATIVE NEGATIVE LEUKOCYTE ESTERASE NEGATIVE NEGATIVE GLUCOSE NEGATIVE NEGATIVE BILIRUBIN NEGATIVE NEGATIVE KETONES NEGATIVE mg/dL NEGATIVE SPECIFIC GRAVITY 1.025 1.010 - 1.030 pH 6.0 5.0 - 8.0 PROTEIN NEGATIVE mg/dL NEGATIVE UROBILINOGEN 0.2 E.U./dL E.U./dL 0.2 E.U ./dL CBC W/DIFF - 11/29/16 08:20 EOSINOPHIL # 0.2 k/cumm 0.1-0.5 EOSINOPHIL % 2 % 2-4 GRANULOCYTE # 5.1 k/cumm 2.0-9.0 GRANULOCYTE % 66 % 50-75 LYMPHOCYTE # 1.9 k/cumm 1.0-4.0 LYMPHOCYTE % 25 % 20-30 MEAN CELL HGB 26.7 pg 27.0-33.0 MEAN CELL HGB CONCENTRATION 32.9 g/dL 32 .0-37.0 MEAN CELL VOLUME 81.1 fl 80.0-100.0 MONOCYTE # 0.5 k/cumm 0.1-1.0 MONOCYTE % 7 % 4-6 RED BLOOD CELL 4.54 m/cumm 4.00-6.00 RED CELL DISTRIBUTION WIDTH 14.4 % 11 .0-15.6 WHITE BLOOD CELL 7.8 k/cumm 5.0-10.0 HEMOGLOBIN 12.1 gm/dL 12.0-16.0 HEMATOCRIT 36.8 % 37.0-47.0 PLATELET COUNT 290 k/cumm 150-450 METABOLIC PANEL, BASIC - 11/29/16 08:20 POTASSIUM 4.1 mmol/L 3.5-5.3 EST GFR (MDRD) > 60 mL/min > 59 ANION GAP 8 mmol/L 5-15 EST CrCl (CG) > 60 mL/min > 59 GLUCOSE 133 mg/dL 70-99 CALCIUM 8.7 mg/dL 8.5-10.1 BLOOD UREA NITROGEN 16 mg/dL 7-20 CREATININE 0.7 mg/dL 0.6-1.0 SODIUM 138 mmol/L 135-148 CHLORIDE 101 mmol/L 98-110 CARBON DIOXIDE 29 mmol/L METABOLIC PANEL, BASIC - 03/07/17 06:21 POTASSIUM 4.4 mmol/L 3.5-5.3 EST GFR (MDRD) > 60 mL/min > 59 ANION GAP 7 mmol/L 5-15 EST CrCl (CG) > 60 mL/min > 59 GLUCOSE 159 mg/dL 70-99 CALCIUM 9.4 mg/dL 8.5-10.1 BLOOD UREA NITROGEN 9 mg/dL 7-20 CREATININE 0.7 mg/dL 0.6-1.0 SODIUM 137 mmol/L 135-148 CHLORIDE 103 mmol/L 98-110 CARBON DIOXIDE 27 mmol/L HEMOGLOBIN - 03/07/17 06:21 MEAN CELL VOLUME 79.7 fl 80.0-100.0 HEMOGLOBIN 12.0 gm/dL 12.0-16.0 Surgical Pathology - 03/09/17 10:44 Document View Attached Image NRG HEMOGRAM - 07/07/19 11:05 WBC 7.5 TH/CMM 4.5-10.8 RBC 4.52 ML/CMM 4.20-5.40 HGB 12.1 G/DL 12.0-16.0 HCT 37.3 % 37.0-47.0 MCV 83 FL 81-99 MCH 26.8 PG 27.0-33.0 MCHC 32.4 G/DL 31.0-36.0 RDW SD 41 FL 36-50 RDW CV 13.8 % 0.0-14.8 MPV 10.8 FL 9.3-12.5 PLT 313 TH/CMM 130-440 NRBC# 0.00 TH/CMM 0.00-0.00 NRBC% 0.0 /100WBC 0.0-2.0 HEMOGRAM N/A NRG COMPREHENSIVE METABOLIC PANEL - 07/07/19 11:05 COMPREHENSIVE METABOLIC PANEL N/A NRG GLUCOSE 140 MG/DL 70-100 SODIUM 137 MEQ/L 135-148 POTASSIUM 3.9 MEQ/L 3.5-5.3 CHLORIDE 102 MEQ/L 96-110 CO2 26 MEQ/L 22-29 BUN 13 MG/DL 8-22 CREATININE 0.66 MG/DL 0.57-1.11 SGOT/AST 21 IU/L 10-40 SGPT/ALT 25 IU/L 8-54 ALK PHOS 87 IU/L 40-150 TOTAL PROTEIN 7.0 G/DL 5.5-8.5 ALBUMIN 3.9 G/DL 3.1-5.4 TOTAL BILI 0.5 MG/DL 0.0-1.5 CALCIUM 9.3 MG/DL 8.2-10.6 AGE 49 yrs NRG GFR NonAA 96 NRG GFR AA 116 NRG eGFR 96 mL/min/1.7 NRG eGFR AA* >60 mL/min/1.7 NRG Coronavirus SARS-CoV-2 SO 2018 - 0 13:04 Coronavirus Ab [Units/volume] in Serum Negative Negative Radiology Report from [facility] on 11/01/19 17 14:06:00 DIAGNOSTIC [place] [facility] [address] [place] [address] PHONE #: [phone] FAX #: [phone] Name: JOSEPHINE EMANUEL Loc: [facility] Radiology No: : 1970 Age: 46 Sex: F Status: REG CLI Unit No: [id number] Phys: Daniel Borrego Acct: [id number] Reason For Exam: PELVIC AND PERINEAL PAIN Exam Date: 10/31/2016 EXAMS: CPT CODE: [id number] CT ABD/PELVIS WITH CONTRAST 01814 REASON FOR EXAM: Chronic pelvic and perineal pain, constipation. History of hypertension TIME OF EXAM: 10/31/2016 11:51 AM COMPARISON: None TECHNIQUE: Routine helical contrast-enhanced CT images were obtained through the abdomen and pelvis. Postprocessed coronal and sagittal reformats were reviewed. FINDINGS: Included Lung Bases: There is no consolidation or acute abnormality. No cardiomegaly, no pericardial effusion. No pleural effusion. CT Abdomen: There is diffuse hepatic steatosis. No focal hepatic lesion. The gallbladder is surgically absent. The portal vein is patent. The spleen, kidneys, adrenal glands, and pancreas all have a normal appearance. Postsurgical changes of prior ventral wall hernia mesh repair are evident. There is no mesenteric or retroperitoneal adenopathy. The appendix is not well seen, however, there is no inflammatory change in the region of the appendix to suggest appendicitis. The bowel loops are nondilated. There is no free fluid or free air. No focal bony abnormality is seen. CT Pelvis: Ureters and bladder are grossly normal. Follicular cysts are seen in the right ovary measuring approximately 16 mm, the uterus is surgically absent There is no free air, free fluid, loculated collection, or adenopathy in the pelvis. The osseous and soft tissue structures are age appropriate. IMPRESSION: 1. No mass or lymphadenopathy in the abdomen and pelvis. No acute abnormality in the abdomen or pelvis. No intra-abdominal ascites. I have personally reviewed these images and corrected the resident physician's interpretation if necessary. PAGE 1 Signed Report (CONTINUED) DIAGNOSTIC IMAGING REPORT [facility] - [address] [place] [address] PHONE #: [phone] FAX #: [phone] Name: WERNER [facility]ELINE [facility]: : 1970 Age: 46 Sex: F Status: REG CLI Unit No: [id number] Phys: Daniel Borrego Acct: [id number] Reason For Exam: PELVIC AND PERINEAL PAIN Exam Date: 10/31/2016 EXAMS: CPT CODE: [id number] CT ABD/PELVIS WITH CONTRAST 76596 <Continued> at 1401 RESIDENT: AKI COLEY MD Reported and signed by: GIL PALMA MD CC: Daniel Stark MD Technologist: GOLDIE SILVERMAN; JEFFREY DUNBAR Transcribed Date/Time: 10/31/2016 (1401)Loom Stop Checker: HUMAIRA Printed Date/Time: 10/31/2016 (1406) BATCH NO: N/A PAGE 2 Signed Report Encounters ACCT No. Visit Date/Time Discharge Status Pt. Type Provider Facility Loc./Unit Complaint [id number] 07/07/2019 10:21:00 Document Registration [id number] 12/06/2016 15:53:01 ACT Unknown [id number] 10/19/2016 10:13:03 10/19/2016 23:5 9:59 CLS Outpatient FAUSTO DONALDSON [id number] 07/07/2019 10:23:12 Document Registration [id number] 05/28/2018 19:21:03 Document Registration [id number] 05/16/2018 14:10:56 Document Registration [id number] 03/07/2017 05:18:00 018 19:15:00 DIS Outpatient Brenden STEWART, [facility] WSILKEA [id number] 07/07/2019 09:57:01 07/07/2019 23:59: 59 CLS Outpatient KRISTYN MARY Monsalve [id number] 04/22/2019 15:41:15 04/22/2019 23:59: 59 CLS Outpatient KRISTYN MARY Monsalve [id number] 12/30/2018 14:46:00 12/30/2018 23:59: 59 CLS Outpatient MARY SIMONS [id number] 07/04/2018 10:32:42 07/04/2018 23:59: 59 CLS Outpatient MARY SIMONS [id number] 05/29/2018 16:10:29 05/29/2018 23:59: 59 CLS Outpatient Rahat Carlson Gerri [id number] 05/16/2018 08:30:15 05/16/2018 23:59: 59 CLS Outpatient KRISTYN MARY Monsalve [id number] 12/31/2017 15:41:15 12/31/2017 23:59: 59 CLS Outpatient MARY SIMONS [id number] 06/29/2017 12:50:43 06/29/2017 23:59: 59 CLS Outpatient MARY SIMONS [id number] 05/29/2016 10:37:04 05/29/2016 23:59: 59 CLS Outpatient MARY SIMONS [id number] 05/08/2016 10:24:11 05/08/2016 23:59: 59 CLS Outpatient MARY SIMONS [id number] 03/09/2016 15:34:03 03/09/2016 23:59: 59 CLS Outpatient MARY SIMONS [id number] 12/14/2015 08:20:15 12/14/2015 23:59: 59 CLS Outpatient MARY SIMONS [id number] 12/22/2014 09:33:19 12/22/2014 23:59: 59 CLS Outpatient MARY SIMONS [id number] 06/11/2014 14:28:52 06/11/2014 23:59: 59 CLS Outpatient MARY SIMONS [id number] 01/23/2014 10:16:19 01/23/2014 23:59: 59 CLS Outpatient MARY SIMONS [id number] 12/30/2013 09:23:39 12/30/2013 23:59: 59 CLS Outpatient MARY SIMONS [id number] 04/01/2013 16:06:19 04/01/2013 23:59: 59 CLS Outpatient MARY SIMONS [id number] 02/12/2013 11:26:41 02/12/2013 23:59: 59 CLS Outpatient MARY SIMONS [id number] 12/07/2014 08:35:00 12/07/2014 08:35 :00 DIS Outpatient MARY SIMONS [facility] LAB [id number] 09/23/2014 13:45:00 09/23/2014 13:45 :00 DIS Outpatient SRINI BURNHAM [facility] RAD [id number] 08/05/2014 00:01:00 08/20/2014 11: 06:00 DIS Outpatient NAVID BOWENS [facility] PT [id number] 08/06/2014 08:20:00 08/06/2014 23:59 :59 CLS Outpatient NAVID BOWENS [facility] RAD [id number] 07/23/2014 07:47:00 08/04/2014 23: 59:00 DIS Outpatient NAVID BOWENS [facility] PT [id number] 07/17/2014 08:01:00 07/17/2014 08:01 :00 DIS Outpatient PADMAJA RAMIREZ [facility] RAD [id number] 07/09/2014 00:00:00 07/09/2014 00:00 :00 DIS Outpatient PADMAJA RAMIREZ [facility] TEJ [id number] 06/28/2014 15:45:00 06/28/2014 16:50 :00 DIS Emergency PIPPA PELAYO [facility] EMR [id number] 09/26/2013 00:00:00 09/26/2013 23:59 :59 CLS Outpatient SRINI BURNHAM [facility] RAD [id number] 05/26/2013 00:00:00 05/26/2013 00:00 :00 DIS Outpatient DONNA FLORES [facility] TEJ [id number] 01/04/2014 00:00:00 Document Registration [id number] 01/04/2013 00:00:00 Document Registration [id number] 01/04/2013 00:00:00 Document Registration [id number] 03/18/2018 18:03:09 019 23:59:59 CLS Outpatient Truong Wilcox [id number] 07/07/2019 07:33:00 020 14:52:00 DIS Outpatient ANABELLA KIRBY DPM [facility] PREOP PLANTAR FASCIITIS LEFT [id number] 07/11/2019 11:50:[address] Outpatient ANABELLA KIRBY DPM [facility] SDC PLANTAR FASCIITIS LEFT [id number] 11/29/2016 07:34:00 017 17:02:00 DIS Outpatient Davie STEWART, Fausto Swartz [facility] E.OR [id number] 10/31/2016 10:54:00 017 10:54:00 DIS Outpatient Mi STEWART, Daniel Monsalve [facility] E.RAC
--- NOTE | 2019-07-11 16:50 | Diagnostic Imaging Report ---
INDICATION: Foot pain. FINDINGS: 2 seconds of fluoro time utilized during orthopedic intervention. IMPRESSION: Fluoroscopy utilized during procedure. Dictated by: Dictated on workstation # [id number]
--- NOTE | 2019-07-11 23:09 | OPERATIVE REPORT ---
DATE OF SERVICE: 07/11/2019 SURGEON: Virginia Kirby DPM PREOPERATIVE DIAGNOSIS: Plantar fasciitis, left foot. POSTOPERATIVE DIAGNOSIS: Plantar fasciitis, left foot. PROCEDURE: Endoscopic plantar fascial release, left. WOUND CLASS: Clean. ANESTHESIA: General. HEMOSTASIS: Pneumatic thigh tourniquet at 300 mmHg. INDICATIONS: This 49-year-old presents complaining of chronic heel pain on the left lower extremity. Conservative therapy is met with unsatisfactory results and the patient is agreeable to surgical intervention after risks and complications were discussed at length. No guarantees were extended to the patient and she is willing to proceed. DESCRIPTION OF PROCEDURE: The patient was brought back to the operating table, placed in secure supine position. Appropriate timeout was performed. A general anesthetic was then induced. A thigh tourniquet was placed on the left lower extremity over several layers of padding. The left foot was elevated and with C-arm, the plantar medial aspect of the calcaneus was visualized. The left foot was then prepped and draped in normal sterile manner. The tourniquet was then inflated to 300 mmHg. Incision to the plantar medial aspect of the left calcaneus was made with a 15 blade was then approximated 0.5 cm vertical incision. The incision was deepened with blunt dissection down to the plantar fascia where a probe was introduced into the inferior aspect of the plantar fascia tenting the lateral skin. Next, an obturator and cannula was introduced into the medial incision along the inferior aspect of the plantar fascia tenting the lateral skin where a second incision was created allowing the obturator and cannula to have a second portal created. The cannula was held in place and the obturator was withdrawn from the foot. A 3 mm camera was introduced into the lateral portal visualizing the inferior aspect of the plantar fascia. Utilizing direct visualization, the medial third of the plantar fascia was released utilizing a hook blade followed by a triangular blade. Percutaneous palpation noted good reduction of tension to the medial band of the plantar fascia. The instrumentation was withdrawn from the foot except for the cannula and the area was flushed with normal saline. After flushing, the cannula was withdrawn and the area was cleansed once again with normal saline. Skin closure was performed with 4-0 Prolene in a simple interrupted type stitch as well as a horizontal mattress. Postoperative injection consisted of 10 mL of 0.5% Marcaine injected in local infusion to the surgical site. A 10 mg of dexamethasone was also injected into the plantar medial aspect of the left heel. Postoperative dressing consisted of Betadine soaked Adaptic, sterile 4 x 4, sterile Kerlix all secured with Coban wrap. The patient tolerated the anesthesia and procedure well, was transported from the operating room to the recovery area with vital signs stable and vascular status intact to all digits of the left foot. She is to be nonweightbearing for the next 24 hours and then slowly increase activity to minimal daily activities. We will see the patient back in the office in 10 days' period of time or sooner if necessary. Job ID: [id number] DocumentID: [id number] Dictated Date: 07/11/2019 13:26:27 Circle Edger Date: 07/11/2019 23:09:00 Dictated By: VIRGINIA KIRBY DPM
== END 2019-07-11 14:52 | disposition home or self-care (01) ==
LOC: EDSEX → SDC 11:50
PROVIDERS: ATTEND Podiatrist Foot & Ankle Surgery
DX: M72.2 Plantar fascial fibromatosis (principal); I10 Essential (primary) hypertension; E03.9 Hypothyroidism, unspecified; E78.2 Mixed hyperlipidemia; J30.9 Allergic rhinitis, unspecified; D64.9 Anemia, unspecified; F32.9 Major depressive disorder, single episode, unspecified; F41.9 Anxiety disorder, unspecified; Z79.899 Other long term (current) drug therapy; Z90.710 Acquired absence of both cervix and uterus; Z98.51 Tubal ligation status
CPT/HCPCS: 76000; 87081